=== PATIENT | male | born 1945 | race African-American/Black ===

== ENCOUNTER 2018-03-17 14:17 | Emergency (ER) | payer OTHER ==
[2018-03-17 14:52] VITALS: BMI 25.4
[2018-03-17 16:01] LABS: BASO % 0.4 % (0-2.0); EOS % 4.4 % (0-4.5); HEMATOCRIT 42.2 % (35.4-49); HEMOGLOBIN 13.3 GM/dL (11.7-16.9); LYMPH % 31.8 % (8-40); MCH 27.3 pg (25.7-33.7); MCHC 31.5 g/dl (32.0-35.9); MEAN CELL VOLUME 86.6 fl (80-96); MEAN PLT VOLUME 8.2 fl (7.5-11.1); MONO % 16.7 % (3.8-10.2); NEUT % 46.7 % (42.8-82.8); PLATELET COUNT 160 K/MM3 (134-434); RBC 4.87 M/mm3 (4.00-5.60); RDW 14.6 % (11.9-15.9); WHITE BLOOD COUNT 4.1 K/mm3 (4.0-10.0)
--- NOTE | 2018-03-17 16:07 | PDOC ---
History of Present Illness - General Chief Complaint: Rectal Bleed Stated Complaint: RECTAL BLEED Time Seen by Provider: 03/17/18 15:24 - History of Present Illness Initial Comments: 03/17/18 16:03 The patient is a 72 year old male, with a past medical history of GIB and dementia who presents to the emergency department via EMS from [facility] for [facility]. As per shelter, pt has had bright red streaks in his stool for the past 3 days. They deny any dark stools. No vomiting. Pt has not complained of lightheadedness, CP/SOB/palpitations. No abdominal pain. Pt is unable to contribute additional history due to dementia but denies any complaints at this time. Denies pain. Denies lightheadedness. Denies nausea. Allergies: NKDA Past surgical history: None reported. Social History: Nonsmoker. Denies EtOH use and recreational drug use. Primary Care Physician: Dr. Maddie Simmons Past History - Past Medical History Allergies/Adverse Reactions: Allergies Allergy/AdvReac Type Severity Reaction Status Date / Time No Known Allergies Allergy Verified 09/09/15 15:46 Home Medications: Ambulatory Orders Amlodipine Besylate [Norvasc -] 10 mg PO DAILY 03/17/18 Dextromethorphan HBr/Quinidine [Nuedexta 20-10 mg Capsule] 1 each PO DAILY 03/17 Divalproex Sodium [Depakote] 250 mg PO DAILY 03/17/18 Divalproex Sodium [Depakote] 500 mg PO HS 03/17/18 Docusate Sodium [Colace -] 300 mg PO HS 03/17/18 Donepezil HCl 10 mg PO DAILY 03/17/18 Dorzolamide HCl/Pf [Dorzolamide 2% Eye Drop] 1 drop OP BID 03/17/18 Ergocalciferol [Vitamin D2] 50,000 unit PO Q7D@1000 03/17/18 Ferrous Sulfate [Iron] 325 mg PO DAILY 03/17/18 Hydrocortisone 2.5% Topical Cr [Anusol 2.5% Hc Cream -] 1 applic RC BID Latanoprost 0.005% Eye Drops [Xalatan 0.005% Eye Drops -] 1 drop OU HS 03/17/18 Losartan Potassium 100 mg PO DAILY 03/17/18 Magnesium Hydroxide [Milk of Magnesia -] 30 ml PO PRN PRN 03/17/18 Multivitamins [Tab-A-Vit -] 1 tab PO DAILY 03/17/18 Olanzapine [Zyprexa] 5 mg PO HS 03/17/18 Polyethylene Glycol 3350 [Miralax (For Daily Use) -] 17 gm PO DAILY 03/17/18 Ranitidine [Zantac -] 150 mg PO HS 03/17/18 Sennosides [Senna] 2 tab PO HS 03/17/18 Sodium Phosphate,Shannon-Dibasic [Fleet Enema] 133 ml RC PRN PRN 03/17/18 Tamsulosin HCl [Flomax] 0.4 mg PO DAILY 03/17/18 Timolol [Betimol] 1 drop OP BID 03/17/18 Vitamin A & D Top Oint - [Vitamin A & D] 1 applic TP BID 03/17/18 hydrALAZINE HCL [Apresoline -] 50 mg PO BID 03/17/18 Anemia: Yes Asthma: No Cancer: No Cardiac Disorders: Yes (PVD) CVA: No COPD: No CHF: No Dementia: Yes Diabetes: No GI Disorders: Yes (gerd) Disorders: No HTN: Yes Hypercholesterolemia: No Liver Disease: No Psychiatric Problems: Yes (schizophrenia, bipolar.) Seizures: No Thyroid Disease: No - Suicide/Smoking/Psychosocial Hx Smoking History: Never smoked Have you smoked in the past 12 months: No Information on smoking cessation initiated: No Hx Alcohol Use: No Drug/Substance Use Hx: No Substance Use Type: None Review of Systems - Review of Systems Comments:: 03/17/18 16:05 GENERAL/CONSTITUTIONAL: No fever or chills. No weakness. HEAD, EYES, EARS, NOSE AND THROAT: No change in vision. No ear pain or discharge. No sore throat. CARDIOVASCULAR: No chest pain, no shortness of breath, no loss of consciousness RESPIRATORY: No cough, wheezing, or hemoptysis. GASTROINTESTINAL: No nausea, vomiting, diarrhea or constipation. GENITOURINARY: No dysuria, frequency, or change in urination. MUSCULOSKELETAL: No joint or muscle swelling or pain. No neck or back pain. SKIN: No rash NEUROLOGIC: No vertigo, no change in strength/sensation. ENDOCRINE: No increased thirst. No abnormal weight change. HEMATOLOGIC/LYMPHATIC: No anemia, easy bleeding, or history of blood clots. ALLERGIC/IMMUNOLOGIC: No hives or skin allergy. *Physical Exam - Vital Signs Last Vital Signs Temp Pulse Resp BP Pulse Ox 97.8 F 63 16 114/65 96 03/17/18 14:17 03/17/18 14:17 03/17/18 14:17 03/17/18 14:17 03/17/18 14:17 - Physical Exam Comments: 03/17/18 16:06 GENERAL: Awake, alert, and fully oriented, in no acute distress. HEAD: No signs of trauma EYES: PERRLA, EOMI, sclera anicteric, conjunctiva clear ENT: Auricles normal inspection, hearing grossly normal, nares patent, oropharynx clear without exudates. Moist mucosa NECK: Nontender, no stepoffs, Normal ROM, supple, no lymphadenopathy, JVD, or masses LUNGS: Breath sounds equal, clear to auscultation bilaterally. No wheezes, and no crackles HEART: Regular rate and rhythm, normal S1 and S2, no murmurs, rubs or gallops ABDOMEN: Soft, nontender, normoactive bowel sounds. No guarding, no rebound. No masses EXTREMITIES: Normal range of motion, no edema. No clubbing or cyanosis. No cords, erythema, or tenderness NEUROLOGICAL: Cranial nerves II through XII intact. 5/5 strength and sensation in all extremities, Normal speech, normal gait, normal cerebellar function SKIN: Warm, Dry, normal turgor, no rashes or lesions noted. RECTAL: No external hemorrhoids, ?palpable internal hemorrhoids, brown stool, no blood, no melena ED Treatment Course - LABORATORY CBC & Chemistry Diagram: 03/17/18 15:32 03/17/18 15:32 - ADDITIONAL ORDERS Additional order review: 03/17/18 15:32 RBC 4.87 MCV 86.6 MCHC 31.5 L RDW 14.6 MPV 8.2 Neutrophils % 46.7 Lymphocytes % 31.8 Monocytes % 16.7 H Eosinophils % 4.4 Basophils % 0.4 Medical Decision Making - Medical Decision Making 03/17/18 16:06 72 M sent from [place] with possible rectal bleed. Pt with stable vitals, well appearing on exam. No findings on exam consistent with GI bleed. Stool is brown. Possible internal hemorrhoids palpated on exam, which may be cause of the red-streaked stool at [place]. - Labs, coags - Stool guaiac 03/17/18 16:27 CBC wnl Guaiac NEGATIVE Low suspicion for actual GI bleed. Pt reassessed - continues to feel well with no complaints. Pt is well appearing, with normal vitals. Clinically stable for DC at this time. I discussed the physical exam findings, ancillary test results and final diagnoses with the patient. I answered all of the patient's questions. The patient was satisfied with the care received and felt comfortable with the discharge plan and treatment plan. The patient agrees to follow up with the primary care physician within 24-72 hours. *DC/Admit/Observation/Transfer Diagnosis at time of Disposition: Blood in stool - Discharge Dispostion Disposition: HOME - Referrals Referrals: Shayna Simmons MD [Primary Care Provider] - - Patient Instructions Printed Discharge Instructions: DI for Rectal Bleeding Additional Instructions: Your bloodwork today was normal, and your stool test was negative for blood. If you experience any bright red blood in your stool or dark tarry stools, lightheadedness, or any other concerning symptoms, return to the ER immediately. Otherwise follow up with your primary doctor within 1 week. - Post Discharge Activity - Attestations Physician Attestion: 03/17/18 16:28 I, Dr. Reed Patel MD, attest that this document has been prepared under my direction and personally reviewed by me in its entirety. I further attest, that it accurately reflects all work, treatment, procedures and medical decision -making performed by me.
[2018-03-17 16:14] LABS: INR 1.08 (0.83-1.09); PROTHROMBIN TIME (PATIENT) 12.8 SEC (9.7-13.0)
[2018-03-17 16:17] LABS: ACTIVATED PTT 31.2 SECONDS (25.2-36.5)
[2018-03-17 16:25] LABS: ALBUMIN 3.4 g/dl (3.4-5.0); ALK PHOS 28 U/L (45-117); ANION GAP 6 MMOL/L (8-16); BILIRUBIN,TOTAL 0.6 mg/dL (0.2-1); BLOOD UREA NITROGEN 15 mg/dL (7-18); CALCIUM 9.5 mg/dL (8.5-10.1); CHLORIDE 104 mmol/L (98-107); CO2 29 mmol/L (21-32); CREATININE 1.1 mg/dL (0.55-1.3); GLUCOSE,RANDOM 79 mg/dL (74-106); POTASSIUM 4.5 mmol/L (3.5-5.1); SGOT/AST 19 U/L (15-37); SGPT/ALT 17 U/L (13-61); SODIUM 139 mmol/L (136-145); TOT PROT 6.6 g/dl (6.4-8.2)
[2018-03-17 17:11] VITALS: BP 121/68; PULSE 69; TEMP 98
--- NOTE | 2018-03-19 15:18 | EKG ---
Test Reason : Blood Pressure : / mmHG Vent. Rate : 058 BPM Atrial Rate : 058 BPM P-R Int : 142 ms QRS Dur : 082 ms QT Int : 434 ms P-R-T Axes : 064 -02 045 degrees QTc Int : 426 ms SINUS BRADYCARDIA POSSIBLE LEFT ATRIAL ENLARGEMENT SEPTAL INFARCT , AGE UNDETERMINED ABNORMAL ECG NO PREVIOUS ECGS AVAILABLE Confirmed by FRANK ARREDONDO MD ([id number]) on 03/19/2018 3:18:22 PM Referred By: Confirmed By:FRANK ARREDONDO MD
== END 2018-03-17 19:05 | disposition home or self-care (01) ==
LOC: JER 14:17
DX: K92.1 Melena (principal); K64.8 Other hemorrhoids; I10 Essential (primary) hypertension; E78.00 Pure hypercholesterolemia, unspecified; K21.9 Gastro-esophageal reflux disease without esophagitis; F03.90 Unspecified dementia, unspecified severity, without behavioral disturbance, psychotic disturbance, mood disturbance, and anxiety; F31.9 Bipolar disorder, unspecified; F20.9 Schizophrenia, unspecified; I73.9 Peripheral vascular disease, unspecified
CPT/HCPCS: 36415; 80053; 82272; 85025; 85610; 85730; 86850; 86900; 86901; 93005; 93010; 99282-25

== ENCOUNTER 2021-08-18 21:03 | Emergency (ER) | payer OTHER ==
[2021-08-18 21:26] VITALS: TEMP 98.9; BMI 19.6
[2021-08-19 03:48] VITALS: BP 150/90; PULSE 88
== END 2021-08-19 03:50 | disposition home or self-care (01) ==
LOC: JER 21:03
DX: K94.23 Gastrostomy malfunction (principal)
CPT/HCPCS: 74018-TC-FY; 99283-25

== ENCOUNTER 2021-08-26 02:11 | Inpatient (IN) | payer OTHER ==
[2021-08-26 02:41] VITALS: BMI 18.6
[2021-08-26 03:25] LABS: HEMOGLOBIN 8.5 GM/dL (11.7-16.9); MEAN PLT VOLUME 9.6 fl (7.5-11.1); MONO % 10.8 % (3.8-10.2)
[2021-08-26 03:35] LABS: INR 2.17 (0.83-1.09); PROTHROMBIN TIME (PATIENT) 25.2 SEC (9.7-13.0)
[2021-08-26 03:38] LABS: ACTIVATED PTT 50.1 SECONDS (25.2-36.5)
[2021-08-26 03:45] LABS: CHLORIDE 132 mmol/L (98-107)
[2021-08-26 03:47] LABS: CALCIUM 8.8 mg/dL (8.5-10.1); GLUCOSE,RANDOM 131 mg/dL (74-106)
[2021-08-26 03:48] LABS: ALBUMIN 2.2 g/dl (3.4-5.0); BLOOD UREA NITROGEN 76.2 mg/dL (7-18); CO2 37 mmol/L (21-32); LIPASE 133 U/L (73-393); MAGNESIUM 3.9 mg/dL (1.8-2.4)
[2021-08-26 03:50] LABS: SGPT/ALT 19 U/L (13-61)
[2021-08-26 03:51] LABS: CREATININE 2.1 mg/dL (0.55-1.3); SGOT/AST 17 U/L (15-37)
[2021-08-26 03:52] LABS: BILIRUBIN,TOTAL 0.3 mg/dL (0.2-1); TOT PROT 7.2 g/dl (6.4-8.2)
[2021-08-26 03:53] LABS: ALK PHOS 58 U/L (45-117)
[2021-08-26 03:58] LABS: BASO % 0.2 % (0-2.0); EOS % 1.3 % (0-4.5); HEMATOCRIT 28.3 % (35.4-49); LYMPH % 19.2 % (8-40); MCH 28.6 pg (25.7-33.7); MCHC 29.9 g/dl (32.0-35.9); MEAN CELL VOLUME 95.7 fl (80-96); NEUT % 68.5 % (42.8-82.8); PLATELET COUNT 330 10^3/uL (134-434); RBC 2.95 M/mm3 (4.00-5.60); RDW 18.2 % (11.9-15.9); WHITE BLOOD COUNT 12.1 K/mm3 (4.0-10.0)
[2021-08-26 04:04] LABS: ANION GAP 2 MMOL/L (8-16); SODIUM 170 mmol/L (136-145)
[2021-08-26] MEDS ORDERED: SODIUM CHLORIDE 0.45% 1,000 ML IV SCH ×3 (04:45→06:34)
[2021-08-26] MEDS ORDERED: SODIUM CHLORIDE 0.9% 500 ML INFUS.BAG IV ONE (05:22)
[2021-08-26] MEDS ORDERED: LACTATED RINGERS SOLUTION 1,000 ML/1,000 ML INFUS.BAG IV STA (06:32)
[2021-08-26 08:28] LABS: URINE APPEARANCE CLEAR; URINE BILIRUBIN NEGATIVE (NEGATIVE); URINE COLOR YELLOW; URINE GLUCOSE (UA) NEGATIVE (NEGATIVE); URINE KETONE TRACE (NEGATIVE); URINE LEUK ESTERASE NEGATIVE (NEGATIVE); URINE NITRITE NEGATIVE (NEGATIVE); URINE PROTEIN TRACE (NEGATIVE); URINE UROBILINOGEN 0.2 mg/dL (0.2-1.0)
[2021-08-26] MEDS: HEPARIN NA (PORCINE) 5,000 UNITS/ML 1ML VIAL SQ SCH ×2 (08:45→15:37)
[2021-08-26] MEDS ORDERED: HEPARIN NA (PORCINE) 5,000 UNITS/ML 1ML VIAL ONE (09:17)
[2021-08-26] MEDS: SODIUM CHLORIDE 0.45% 1,000 ML IV SCH ×2 (09:40→23:54)
[2021-08-26] MEDS: DONEPEZIL HCL 10 MG TABLET (FP) PO SCH (10:00)
[2021-08-26] MEDS ORDERED: APIXABAN 5 MG TABLET PO SCH (10:00)
[2021-08-26] MEDS ORDERED: TAMSULOSIN HCL 0.4 MG CAP PO SCH (10:00)
[2021-08-26] MEDS ORDERED: TAMSULOSIN HCL 0.4 MG CAP ONE (10:20)
[2021-08-26 10:36] LABS: IRON SERUM 55 ug/dL (50-175); TOTAL IRON BINDING CAPACITY 158 ug/dL (250-450)
[2021-08-26 10:42] LABS: MCH 29.4 pg (25.7-33.7); MCHC 30.2 g/dl (32.0-35.9); MEAN CELL VOLUME 97.1 fl (80-96); MEAN PLT VOLUME 9.9 fl (7.5-11.1); PLATELET COUNT 237 10^3/uL (134-434); RBC 2.36 M/mm3 (4.00-5.60); RDW 17.8 % (11.9-15.9); WHITE BLOOD COUNT 9.4 K/mm3 (4.0-10.0)
[2021-08-26 10:49] LABS: HEMOGLOBIN 6.9 GM/dL (11.7-16.9)
[2021-08-26 11:13] LABS: CHLORIDE 132 mmol/L (98-107)
[2021-08-26] MEDS: METOPROLOL TARTRATE 50 MG TABLET (FP) PO SCH ×2 (11:14→21:57)
[2021-08-26 11:15] LABS: CALCIUM 8.6 mg/dL (8.5-10.1); CO2 33 mmol/L (21-32); GLUCOSE,RANDOM 133 mg/dL (74-106)
[2021-08-26 11:16] LABS: ALBUMIN 2.2 g/dl (3.4-5.0); MAGNESIUM 3.6 mg/dL (1.8-2.4)
[2021-08-26 11:18] LABS: SGPT/ALT 16 U/L (13-61)
[2021-08-26 11:19] LABS: CREATININE 1.8 mg/dL (0.55-1.3); PHOSPHOROUS 5.1 mg/dL (2.5-4.9); SGOT/AST 16 U/L (15-37)
[2021-08-26 11:20] LABS: BILIRUBIN,TOTAL 0.3 mg/dL (0.2-1); TOT PROT 5.9 g/dl (6.4-8.2)
[2021-08-26 11:21] LABS: ALK PHOS 45 U/L (45-117)
[2021-08-26 11:25] LABS: ANION GAP 4 MMOL/L (8-16); SODIUM 169 mmol/L (136-145)
[2021-08-26 13:17] LABS: HEMATOCRIT 12.6 % (35.4-49); MCH 28.3 pg (25.7-33.7); MCHC 29.3 g/dl (32.0-35.9); MEAN CELL VOLUME 96.5 fl (80-96); MEAN PLT VOLUME 9.9 fl (7.5-11.1); PLATELET COUNT 253 10^3/uL (134-434); RBC 1.31 M/mm3 (4.00-5.60); RDW 17.5 % (11.9-15.9); WHITE BLOOD COUNT 12.3 K/mm3 (4.0-10.0)
[2021-08-26 13:45] LABS: HEMOGLOBIN 3.7 GM/dL (11.7-16.9)
[2021-08-26 14:31] LABS: ANISOCYTOSIS 3+; MACROCYTOSIS 0; ROULEAU 2+
[2021-08-26] MEDS ORDERED: CEFEPIME 1 GM in DEXTROSE 5%-WATER 100 ML IVPB ONE (15:50)
[2021-08-26] MEDS ORDERED: CEFEPIME 1 GM/100 ML BAG IVPB ONE (16:15)
[2021-08-26] MEDS ORDERED: ACETAMINOPHEN 1000 MG/100 ML BAG IVPB ONE (17:53)
[2021-08-26] MEDS ORDERED: ACETAMINOPHEN INJECTION 100 ML IVPB ONE (17:56)
[2021-08-26 20:40] LABS: BASO % 0.2 % (0-2.0); EOS % 1.7 % (0-4.5); HEMATOCRIT 27.7 % (35.4-49); HEMOGLOBIN 8.5 GM/dL (11.7-16.9); LYMPH % 12.3 % (8-40); MCH 28.1 pg (25.7-33.7); MCHC 30.8 g/dl (32.0-35.9); MEAN CELL VOLUME 91.4 fl (80-96); MEAN PLT VOLUME 9.8 fl (7.5-11.1); MONO % 8.9 % (3.8-10.2); NEUT % 76.9 % (42.8-82.8); PLATELET COUNT 231 10^3/uL (134-434); RBC 3.03 M/mm3 (4.00-5.60); RDW 18.7 % (11.9-15.9); WHITE BLOOD COUNT 10.5 K/mm3 (4.0-10.0)
[2021-08-26 20:49] LABS: CHLORIDE 131 mmol/L (98-107)
[2021-08-26 20:51] LABS: BLOOD UREA NITROGEN 59.3 mg/dL (7-18); CALCIUM 7.9 mg/dL (8.5-10.1); CO2 29 mmol/L (21-32); GLUCOSE,RANDOM 106 mg/dL (74-106)
[2021-08-26 20:52] LABS: ALBUMIN 1.8 g/dl (3.4-5.0)
[2021-08-26 20:54] LABS: SGPT/ALT 14 U/L (13-61)
[2021-08-26 20:55] LABS: CREATININE 1.6 mg/dL (0.55-1.3); SGOT/AST 20 U/L (15-37)
[2021-08-26 20:56] LABS: BILIRUBIN,TOTAL 0.6 mg/dL (0.2-1); TOT PROT 5.5 g/dl (6.4-8.2)
[2021-08-26 20:57] LABS: ALK PHOS 48 U/L (45-117)
[2021-08-26 20:59] LABS: ANION GAP 5 MMOL/L (8-16); SODIUM 165 mmol/L (136-145)
[2021-08-26] MEDS ORDERED: DEXTROSE 5%-WATER 100 ML IVPB ONE (23:55)
[2021-08-26] MEDS ORDERED: CEFEPIME HCL 1 GM VIAL (RESTRICTED TO ID) ONE (23:55)
[2021-08-26] MEDS: CEFEPIME 1 GM in DEXTROSE 5%-WATER 100 ML IVPB SCH (23:56)
[2021-08-27 00:24] LABS: BASO % 0.3 % (0-2.0); EOS % 2.1 % (0-4.5); HEMATOCRIT 25.2 % (35.4-49); HEMOGLOBIN 8.2 GM/dL (11.7-16.9); LYMPH % 13.7 % (8-40); MCH 28.8 pg (25.7-33.7); MCHC 32.5 g/dl (32.0-35.9); MEAN CELL VOLUME 88.5 fl (80-96); MEAN PLT VOLUME 9.4 fl (7.5-11.1); MONO % 8.6 % (3.8-10.2); NEUT % 75.3 % (42.8-82.8); PLATELET COUNT 238 10^3/uL (134-434); RBC 2.85 M/mm3 (4.00-5.60); RDW 18.4 % (11.9-15.9); WHITE BLOOD COUNT 11.9 K/mm3 (4.0-10.0)
[2021-08-27 00:42] LABS: CHLORIDE 133 mmol/L (98-107)
[2021-08-27 00:43] LABS: CALCIUM 7.7 mg/dL (8.5-10.1); CO2 32 mmol/L (21-32); GLUCOSE,RANDOM 118 mg/dL (74-106)
[2021-08-27 00:44] LABS: BLOOD UREA NITROGEN 59.3 mg/dL (7-18)
[2021-08-27 00:47] LABS: CREATININE 1.5 mg/dL (0.55-1.3)
[2021-08-27 00:48] LABS: LACTIC ACID 2.4 mmol/L (0.4-2.0)
[2021-08-27 00:49] LABS: ANION GAP 2 MMOL/L (8-16); SODIUM 167 mmol/L (136-145)
[2021-08-27] MEDS ORDERED: SODIUM CHLORIDE 250 ML IV STA (02:00)
[2021-08-27] MEDS: SODIUM CHLORIDE 0.45% 1,000 ML IV SCH (06:46)
[2021-08-27] MEDS ORDERED: PANTOPRAZOLE SODIUM 40 MG in SODIUM CHLORIDE 100 ML IVPB SCH (10:00)
[2021-08-27] MEDS ORDERED: CEFEPIME HCL 1 GM VIAL (RESTRICTED TO ID) ONE ×2 (10:15→20:20)
[2021-08-27] MEDS ORDERED: DEXTROSE 5%-WATER 100 ML IVPB ONE ×2 (10:15→20:20)
[2021-08-27] MEDS: TAMSULOSIN HCL 0.4 MG CAP PO SCH (10:17)
[2021-08-27] MEDS: METOPROLOL TARTRATE 50 MG TABLET (FP) PO SCH ×2 (10:19→21:14)
[2021-08-27] MEDS: CEFEPIME 1 GM in DEXTROSE 5%-WATER 100 ML IVPB SCH ×2 (10:33→21:15)
[2021-08-27] MEDS: PANTOPRAZOLE SODIUM 40 MG VIAL IVPUSH SCH ×2 (10:33→21:09)
[2021-08-27] MEDS: DONEPEZIL HCL 10 MG TABLET (FP) PO SCH (10:33)
[2021-08-27] MEDS: NYSTATIN 500,000 UNITS/5 ML SUSPENSION PO SCH ×3 (11:33→23:58)
[2021-08-27] MEDS: DEXTROSE 5%-0.45% SALINE 995 ML with POTASSIUM CHLORIDE 10 MEQ IV SCH (13:16)
[2021-08-28] MEDS: DEXTROSE 5%-0.45% SALINE 995 ML with POTASSIUM CHLORIDE 10 MEQ IV SCH (00:01)
[2021-08-28] MEDS: D5-1/2NS+10 MEQ KCL - 10 MEQ/1,000 ML INFUS.BAG IV SCH (00:28)
[2021-08-28] MEDS: NYSTATIN 500,000 UNITS/5 ML SUSPENSION PO SCH ×4 (05:38→23:20)
[2021-08-28 07:55] LABS: CALCIUM 8.2 mg/dL (8.5-10.1)
[2021-08-28 07:56] LABS: MAGNESIUM 2.8 mg/dL (1.8-2.4)
[2021-08-28 07:59] LABS: CREATININE 1.1 mg/dL (0.55-1.3); PHOSPHOROUS 3.5 mg/dL (2.5-4.9)
[2021-08-28 08:00] LABS: BILIRUBIN,TOTAL 0.6 mg/dL (0.2-1); TOT PROT 5.3 g/dl (6.4-8.2)
[2021-08-28 08:04] LABS: BLOOD UREA NITROGEN 30.7 mg/dL (7-18)
[2021-08-28 08:35] LABS: BASO % 0.2 % (0-2.0); EOS % 3.9 % (0-4.5); HEMATOCRIT 25.7 % (35.4-49); HEMOGLOBIN 8.4 GM/dL (11.7-16.9); LYMPH % 15.9 % (8-40); MCHC 32.5 g/dl (32.0-35.9); MEAN CELL VOLUME 89.3 fl (80-96); MEAN PLT VOLUME 9.7 fl (7.5-11.1); PLATELET COUNT 219 10^3/uL (134-434); RBC 2.88 M/mm3 (4.00-5.60); WHITE BLOOD COUNT 10.4 K/mm3 (4.0-10.0)
[2021-08-28] MEDS ORDERED: DEXTROSE 5%-WATER 100 ML IVPB ONE ×2 (10:32→21:50)
[2021-08-28] MEDS ORDERED: CEFEPIME HCL 1 GM VIAL (RESTRICTED TO ID) ONE ×2 (10:32→21:50)
[2021-08-28] MEDS: TAMSULOSIN HCL 0.4 MG CAP PO SCH (10:48)
[2021-08-28] MEDS: DONEPEZIL HCL 10 MG TABLET (FP) PO SCH (10:49)
[2021-08-28] MEDS: CEFEPIME 1 GM in DEXTROSE 5%-WATER 100 ML IVPB SCH ×2 (10:49→22:11)
[2021-08-28] MEDS: METOPROLOL TARTRATE 50 MG TABLET (FP) PO SCH ×2 (10:49→22:11)
[2021-08-28] MEDS: PANTOPRAZOLE SODIUM 40 MG VIAL IVPUSH SCH ×2 (10:49→22:11)
[2021-08-28] MEDS: POLYETHYLENE GLYCOL (HEALTHYLAX) 3350 17 GM PACKET GT SCH (22:12)
[2021-08-29] MEDS: D5-1/2NS+10 MEQ KCL - 10 MEQ/1,000 ML INFUS.BAG IV SCH (06:49)
[2021-08-29] MEDS: NYSTATIN 500,000 UNITS/5 ML SUSPENSION PO SCH ×3 (06:49→17:35)
[2021-08-29] MEDS: POLYETHYLENE GLYCOL (HEALTHYLAX) 3350 17 GM PACKET GT SCH ×2 (06:49→14:17)
[2021-08-29 07:31] LABS: BLOOD UREA NITROGEN 20.7 mg/dL (7-18); CALCIUM 7.7 mg/dL (8.5-10.1); MAGNESIUM 2.5 mg/dL (1.8-2.4)
[2021-08-29 07:35] LABS: PHOSPHOROUS 2.7 mg/dL (2.5-4.9)
[2021-08-29] MEDS ORDERED: DEXTROSE 5%-WATER 100 ML IVPB ONE ×2 (08:52→20:16)
[2021-08-29] MEDS ORDERED: CEFEPIME HCL 1 GM VIAL (RESTRICTED TO ID) ONE ×2 (08:52→20:16)
[2021-08-29] MEDS ORDERED: POTASSIUM CHLORIDE ORAL LIQUID 20 MEQ/15 ML PO ONE (09:36)
[2021-08-29 09:38] LABS: BASO % 0.3 % (0-2.0); EOS % 3.3 % (0-4.5); HEMATOCRIT 26.4 % (35.4-49); HEMOGLOBIN 8.4 GM/dL (11.7-16.9); LYMPH % 15.9 % (8-40); MCH 28.8 pg (25.7-33.7); MEAN CELL VOLUME 90.2 fl (80-96); MEAN PLT VOLUME 9.1 fl (7.5-11.1); MONO % 8.5 % (3.8-10.2); PLATELET COUNT 192 10^3/uL (134-434); RBC 2.93 M/mm3 (4.00-5.60); RDW 17.5 % (11.9-15.9); WHITE BLOOD COUNT 9.7 K/mm3 (4.0-10.0)
[2021-08-29] MEDS ORDERED: DEXTROSE 5%-WATER - 1,000 ML with POTASSIUM CHLORIDE 20 MEQ IV SCH (09:45)
[2021-08-29] MEDS ORDERED: POTASSIUM CHLORIDE TABS 20 MEQ TABLET.ER (FP) PO ONE (09:49)
[2021-08-29] MEDS: POTASSIUM CHLORIDE 20 MEQ in DEXTROSE 5%-WATER - 1,000 ML IV SCH ×2 (10:00→23:00)
[2021-08-29] MEDS: METOPROLOL TARTRATE 50 MG TABLET (FP) PO SCH ×2 (10:21→21:04)
[2021-08-29] MEDS: CEFEPIME 1 GM in DEXTROSE 5%-WATER 100 ML IVPB SCH ×2 (10:23→21:01)
[2021-08-29] MEDS: PANTOPRAZOLE SODIUM 40 MG VIAL IVPUSH SCH ×2 (10:23→21:01)
[2021-08-29] MEDS: DONEPEZIL HCL 10 MG TABLET (FP) PO SCH (10:23)
[2021-08-29] MEDS: TAMSULOSIN HCL 0.4 MG CAP PO SCH (10:23)
[2021-08-29 13:30] LABS: INR 1.3 (0.83-1.09)
[2021-08-29 13:51] LABS: LACTIC ACID 2.1 mmol/L (0.4-2.0)
[2021-08-30] MEDS: NYSTATIN 500,000 UNITS/5 ML SUSPENSION PO SCH ×5 (00:03→23:04)
[2021-08-30] MEDS: POTASSIUM CHLORIDE 20 MEQ in DEXTROSE 5%-WATER - 1,000 ML IV SCH ×2 (06:35→20:04)
[2021-08-30] MEDS: TAMSULOSIN HCL 0.4 MG CAP PO SCH (08:01)
[2021-08-30 09:03] LABS: BASO % 0.3 % (0-2.0); EOS % 3.4 % (0-4.5); HEMATOCRIT 27.4 % (35.4-49); HEMOGLOBIN 8.7 GM/dL (11.7-16.9); LYMPH % 12.6 % (8-40); MCH 28.4 pg (25.7-33.7); MCHC 31.7 g/dl (32.0-35.9); MEAN CELL VOLUME 89.6 fl (80-96); MEAN PLT VOLUME 9.2 fl (7.5-11.1); MONO % 6.5 % (3.8-10.2); NEUT % 77.2 % (42.8-82.8); PLATELET COUNT 213 10^3/uL (134-434); RBC 3.06 M/mm3 (4.00-5.60); RDW 17.2 % (11.9-15.9); WHITE BLOOD COUNT 7.8 K/mm3 (4.0-10.0)
[2021-08-30] MEDS ORDERED: CEFEPIME HCL 1 GM VIAL (RESTRICTED TO ID) ONE ×3 (09:22→21:22)
[2021-08-30] MEDS ORDERED: DEXTROSE 5%-WATER 100 ML IVPB ONE ×3 (09:22→21:23)
[2021-08-30 09:41] LABS: CALCIUM 7.9 mg/dL (8.5-10.1)
[2021-08-30 09:42] LABS: BLOOD UREA NITROGEN 15.9 mg/dL (7-18); MAGNESIUM 2.7 mg/dL (1.8-2.4)
[2021-08-30 09:45] LABS: CREATININE 0.8 mg/dL (0.55-1.3); PHOSPHOROUS 2.5 mg/dL (2.5-4.9)
[2021-08-30 09:47] LABS: BILIRUBIN,TOTAL 0.3 mg/dL (0.2-1); TOT PROT 5.7 g/dl (6.4-8.2)
[2021-08-30] MEDS ORDERED: POLYETHYLENE GLYCOL (HEALTHYLAX) 3350 17 GM PACKET GT SCH (10:00)
[2021-08-30] MEDS: DONEPEZIL HCL 10 MG TABLET (FP) PO SCH (10:46)
[2021-08-30] MEDS: METOPROLOL TARTRATE 50 MG TABLET (FP) PO SCH (10:46)
[2021-08-30] MEDS: CEFEPIME 1 GM in DEXTROSE 5%-WATER 100 ML IVPB SCH ×2 (10:46→21:31)
[2021-08-30] MEDS: PANTOPRAZOLE SODIUM 40 MG VIAL IVPUSH SCH ×2 (10:47→21:31)
[2021-08-30] MEDS ORDERED: METOPROLOL TARTRATE 50 MG TABLET (FP) PO SCH (22:00)
[2021-08-31] MEDS: POTASSIUM CHLORIDE 20 MEQ in DEXTROSE 5%-WATER - 1,000 ML IV SCH ×3 (02:18→21:19)
[2021-08-31] MEDS: NYSTATIN 500,000 UNITS/5 ML SUSPENSION PO SCH (05:06)
[2021-08-31] MEDS ORDERED: TAMSULOSIN HCL 0.4 MG CAP PO SCH (08:30)
[2021-08-31] MEDS ORDERED: DEXTROSE 5%-WATER 100 ML IVPB ONE (09:33)
[2021-08-31] MEDS ORDERED: CEFEPIME HCL 1 GM VIAL (RESTRICTED TO ID) ONE (09:33)
[2021-08-31] MEDS: METOPROLOL TARTRATE 50 MG TABLET (FP) GT SCH ×2 (09:36→21:26)
[2021-08-31] MEDS: CEFEPIME 1 GM in DEXTROSE 5%-WATER 100 ML IVPB SCH (09:37)
[2021-08-31] MEDS: DONEPEZIL HCL 10 MG TABLET (FP) GT SCH (09:37)
[2021-08-31] MEDS: POLYETHYLENE GLYCOL (HEALTHYLAX) 3350 17 GM PACKET GT SCH ×2 (09:37→21:26)
[2021-08-31] MEDS: PANTOPRAZOLE SODIUM 40 MG VIAL IVPUSH SCH ×2 (09:38→21:26)
[2021-08-31] MEDS ORDERED: POLYETHYLENE GLYCOL (HEALTHYLAX) 3350 17 GM PACKET GT SCH (10:00)
[2021-08-31] MEDS: NYSTATIN 500,000 UNITS/5 ML SUSPENSION GT SCH ×3 (14:07→23:56)
[2021-08-31 16:04] LABS: BASO % 0.2 % (0-2.0); EOS % 3.3 % (0-4.5); HEMATOCRIT 25.5 % (35.4-49); HEMOGLOBIN 8.1 GM/dL (11.7-16.9); MCH 28.2 pg (25.7-33.7); MCHC 31.6 g/dl (32.0-35.9); MEAN CELL VOLUME 89.1 fl (80-96); MEAN PLT VOLUME 9.2 fl (7.5-11.1); MONO % 8.9 % (3.8-10.2); NEUT % 71.6 % (42.8-82.8); PLATELET COUNT 192 10^3/uL (134-434); RBC 2.86 M/mm3 (4.00-5.60); RDW 16.7 % (11.9-15.9)
[2021-08-31 16:21] LABS: CALCIUM 7.7 mg/dL (8.5-10.1)
[2021-08-31 16:22] LABS: ALBUMIN 1.7 g/dl (3.4-5.0); BLOOD UREA NITROGEN 12.8 mg/dL (7-18); MAGNESIUM 2.4 mg/dL (1.8-2.4)
[2021-08-31 16:24] LABS: CREATININE 0.6 mg/dL (0.55-1.3); PHOSPHOROUS 2.1 mg/dL (2.5-4.9)
[2021-08-31 16:26] LABS: BILIRUBIN,TOTAL 0.2 mg/dL (0.2-1)
[2021-08-31 17:07] LABS: GLIADIN ANTIBODY IGA 4 units (0-19); GLIADIN ANTIBODY IGG 1 units (0-19); TRANSGLUTAMINASE IGG < 2 U/mL (0-5)
[2021-08-31] MEDS ORDERED: AMOX TR/POTASSIUM CLAVULANATE 400 MG/5 ML BOTTLE PO SCH (17:30)
[2021-08-31] MEDS: AMOX TR/POTASSIUM CLAVULANATE 250 MG/5 ML BOTTLE GT SCH (17:34)
[2021-09-01] MEDS: NYSTATIN 500,000 UNITS/5 ML SUSPENSION GT SCH (06:27)
[2021-09-01] MEDS ORDERED: TAMSULOSIN HCL 0.4 MG CAP PO SCH (08:30)
[2021-09-01] MEDS: AMOX TR/POTASSIUM CLAVULANATE 250 MG/5 ML BOTTLE GT SCH ×2 (08:31→17:21)
[2021-09-01 08:34] LABS: BASO % 0.3 % (0-2.0); EOS % 3.3 % (0-4.5); HEMOGLOBIN 7.2 GM/dL (11.7-16.9); LYMPH % 14.5 % (8-40); MCH 28.4 pg (25.7-33.7); MCHC 32.6 g/dl (32.0-35.9); MEAN CELL VOLUME 87.2 fl (80-96); MEAN PLT VOLUME 9.6 fl (7.5-11.1); MONO % 10.8 % (3.8-10.2); NEUT % 71.1 % (42.8-82.8); PLATELET COUNT 198 10^3/uL (134-434); RBC 2.53 M/mm3 (4.00-5.60); RDW 16.2 % (11.9-15.9); WHITE BLOOD COUNT 8.4 K/mm3 (4.0-10.0)
[2021-09-01 08:49] LABS: BLOOD UREA NITROGEN 9.5 mg/dL (7-18); CALCIUM 7.8 mg/dL (8.5-10.1)
[2021-09-01 08:51] LABS: ALBUMIN 1.7 g/dl (3.4-5.0); MAGNESIUM 2.2 mg/dL (1.8-2.4)
[2021-09-01 08:53] LABS: CREATININE 0.6 mg/dL (0.55-1.3)
[2021-09-01 08:55] LABS: BILIRUBIN,TOTAL 0.3 mg/dL (0.2-1)
[2021-09-01] MEDS ORDERED: ACETAMINOPHEN 1000 MG/100 ML BAG IVPB ONE (09:14)
[2021-09-01] MEDS: METOPROLOL TARTRATE 50 MG TABLET (FP) GT SCH ×2 (11:17→21:39)
[2021-09-01] MEDS: PANTOPRAZOLE SODIUM 40 MG VIAL IVPUSH SCH ×2 (11:22→21:39)
[2021-09-01] MEDS: POLYETHYLENE GLYCOL (HEALTHYLAX) 3350 17 GM PACKET GT SCH ×2 (11:22→21:39)
[2021-09-01] MEDS: DONEPEZIL HCL 10 MG TABLET (FP) GT SCH (11:25)
[2021-09-01] MEDS ORDERED: POTASSIUM PHOSPHATE 15 MM in DEXTROSE 5%-WATER - 250 ML IVPB ONE (11:57)
[2021-09-01] MEDS: DOXAZOSIN MESYLATE 1 MG TABLET GT SCH (12:44)
[2021-09-01] MEDS: NYSTATIN 500,000 UNITS/5 ML SUSPENSION PO SCH ×2 (12:44→17:21)
[2021-09-01] MEDS ORDERED: NAPH,MB-DB/K PH,MBDB POWDER PACKET PO ONE (16:23)
[2021-09-02] MEDS: NYSTATIN 500,000 UNITS/5 ML SUSPENSION PO SCH ×3 (00:13→11:45)
[2021-09-02] MEDS: AMOX TR/POTASSIUM CLAVULANATE 250 MG/5 ML BOTTLE GT SCH (07:52)
[2021-09-02] MEDS: PANTOPRAZOLE SODIUM 40 MG VIAL IVPUSH SCH (09:04)
[2021-09-02] MEDS: METOPROLOL TARTRATE 50 MG TABLET (FP) GT SCH (09:04)
[2021-09-02] MEDS: DONEPEZIL HCL 10 MG TABLET (FP) GT SCH (09:05)
[2021-09-02] MEDS: POLYETHYLENE GLYCOL (HEALTHYLAX) 3350 17 GM PACKET GT SCH (09:05)
[2021-09-02] MEDS: DOXAZOSIN MESYLATE 1 MG TABLET GT SCH (09:05)
[2021-09-02 10:01] LABS: BASO % 0.2 % (0-2.0); EOS % 3.2 % (0-4.5); HEMATOCRIT 24.9 % (35.4-49); HEMOGLOBIN 8.2 GM/dL (11.7-16.9); LYMPH % 16.4 % (8-40); MCH 28.7 pg (25.7-33.7); MCHC 33.1 g/dl (32.0-35.9); MEAN CELL VOLUME 86.7 fl (80-96); MEAN PLT VOLUME 9.4 fl (7.5-11.1); MONO % 9.9 % (3.8-10.2); NEUT % 70.3 % (42.8-82.8); PLATELET COUNT 222 10^3/uL (134-434); RBC 2.87 M/mm3 (4.00-5.60); RDW 16.4 % (11.9-15.9); WHITE BLOOD COUNT 9.4 K/mm3 (4.0-10.0)
[2021-09-02 10:10] LABS: ALBUMIN 1.6 g/dl (3.4-5.0); CALCIUM 7.9 mg/dL (8.5-10.1)
[2021-09-02 10:13] LABS: BLOOD UREA NITROGEN 9.2 mg/dL (7-18); CREATININE 0.6 mg/dL (0.55-1.3); PHOSPHOROUS 2.9 mg/dL (2.5-4.9)
[2021-09-02 10:16] LABS: BILIRUBIN,TOTAL 0.4 mg/dL (0.2-1); TOT PROT 5.8 g/dl (6.4-8.2)
[2021-09-02 13:18] VITALS: BP 114/63; PULSE 80; TEMP 97.4
== END 2021-09-02 13:54 | DRG 720 ==
LOC: JER 02:11 → JERBED 05:22 → J4W 23:49 → J5S 08-30 13:29
PROVIDERS: ADMIT Hospitalist; ATTEND Nurse Practitioner Acute Care
PROC: 30233N1 Transfusion of Nonautologous Red Blood Cells into Peripheral Vein, Percutaneous Approach (ICD-10-PCS; principal; 2021-08-26)
DX: A41.9 Sepsis, unspecified organism (principal); J44.9 Chronic obstructive pulmonary disease, unspecified; J69.0 Pneumonitis due to inhalation of food and vomit; I48.91 Unspecified atrial fibrillation; Z79.01 Long term (current) use of anticoagulants; R13.12 Dysphagia, oropharyngeal phase; Z93.1 Gastrostomy status; R64 Cachexia; E87.0 Hyperosmolality and hypernatremia; F03.90 Unspecified dementia, unspecified severity, without behavioral disturbance, psychotic disturbance, mood disturbance, and anxiety; K21.9 Gastro-esophageal reflux disease without esophagitis; I73.9 Peripheral vascular disease, unspecified; I10 Essential (primary) hypertension; N17.9 Acute kidney failure, unspecified; E86.1 Hypovolemia; D62 Acute posthemorrhagic anemia; G93.41 Metabolic encephalopathy; Z68.1 Body mass index [BMI] 19.9 or less, adult; E83.39 Other disorders of phosphorus metabolism; E83.41 Hypermagnesemia; E86.0 Dehydration; R19.5 Other fecal abnormalities; J96.10 Chronic respiratory failure, unspecified whether with hypoxia or hypercapnia; Z51.5 Encounter for palliative care; E87.2 Acidosis; Z93.0 Tracheostomy status
CPT/HCPCS: 36415; 36430; 36511; 70450-TC; 71045-TC-FY; 74177-TC; 80048; 80053; 81003; 82272; 82570; 82728; 82784; 82962; 83516; 83540; 83550; 83605; 83690; 83735; 84100; 84133; 84155; 84156; 84165; 84300; 84439; 84443; 84484; 85025; 85027; 85045; 85610; 85730; 86140; 86334; 86850; 86900; 86901; 86922; 87040; 87086; 87804; 93005; 93010; 99291; 99292; C9803-CS; J1644; P9038; P9058; U0003; U0005